=== PATIENT | male | born 1990 | race Caucasian/White ===

== ENCOUNTER 2019-01-24 04:36 | Emergency (ER) | payer MEDICAID, SELFPAY ==
[2019-01-24 04:37] VITALS: BP 166/120; PULSE 69; RESP 20; TEMP 36.4; O2SAT 99; BMI 32.8
--- NOTE | 2019-01-24 04:58 | ED.VIS.GEN ---
History of Present Illness Chief Complaint: Headache Narrative: Patient is a 29-year-old male who presents with a headache. He does have a history of prior migraines. His headache is similar in character and location to previous migraines although he has not had one in a few years. He has previously had to go to the ER for migraines. His current headache started about 4 hours ago and is gradually worsened since that time. He rates it as severe. When asked to characterize it is sharp, dull, aching etc. he states all of the above. He also complains of pain behind his right eye. He complains of light sensitivity. He also reports nausea and vomiting. No recent illness. No fevers. No head injury. No neck pain. Past Medical History - Allergies and Home Meds Allergies/Adverse Reactions: Allergies No Known Allergies Allergy (Verified 01/24/19 04:37) Primary Care Physician: NOT,DEFINED [NON-STAFF] - Past Medical History: - - Migraines Smoking Status: Current every day smoker Physical Exam Vital Signs/Narrative: Vital Signs Temp Pulse Resp BP Pulse Ox 01/24/19 04:37 97.6 F L 69 20 H 166/120 H 99 Diagnostic/Tx/Re-eval - Medical Decision Making Patient was treated with IV fluids, Toradol, Reglan. He had market improvement on reevaluation. Patient discharged. ED Disposition - Plan for ED Patient: Disposition: Home or Assisted Living Diagnosis: Migraine Instructions: HEADACHE, Unspecified Referrals: NOT,DEFINED [NON-STAFF] -
[2019-01-24] MEDS: 0.9% Normal Saline 1,000 ML 999 ML IV (05:17)
[2019-01-24] MEDS: Ketorolac 30 MG/ML Syringe IV (05:17)
[2019-01-24] MEDS: Metoclopramide 10 MG/2 ML Vial IV (05:19)
[2019-01-24 06:25] VITALS: BP 158/80; PULSE 74; RESP 16; O2SAT 98
== END 2019-01-24 06:32 | disposition home or self-care (01) ==
PROVIDERS: Emergency Provider Emergency Medicine
DX: G43.909 Migraine, unspecified, not intractable, without status migrainosus (principal); F17.200 Nicotine dependence, unspecified, uncomplicated
CPT/HCPCS: 96361; 96374; 96375; 99283; J7030; A4216